=== PATIENT | male | born 1995 | race Caucasian/White ===

== ENCOUNTER 2023-01-22 21:33 | Emergency (ER) | payer MEDICAID, SELFPAY ==
[2023-01-22 21:55] VITALS: BP 151/118; PULSE 95; RESP 20; TEMP 36.5; O2SAT 97; BMI 23.0
[2023-01-22] MEDS: MORPHINE 4 MG/ML INJ IVP (22:50)
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
--- NOTE | 2023-01-22 23:23 | CRLHL7_ITS ---
For Patients: As a result of the Cures Act, medical imaging exams and procedure reports are released immediately into your electronic medical record. You may view this report before your referring provider. If you have questions, please contact your health care provider. INDICATION: Injury and pain. TECHNIQUE: Right knee 2 views. COMPARISON: None. FINDINGS: No acute fractures or malalignment. No joint effusion. Joint spaces are maintained. Soft tissues are unremarkable. IMPRESSION: No acute osseous abnormalities. Dictated by Justin Lancaster MD @ 01/23/2023 1:01:34 AM (Electronically Signed)
[2023-01-23] MEDS: BACITRACIN OINTMENT BULK TUBE 1 APPLIC TOPICAL (01:17)
--- NOTE | 2023-01-23 01:33 | ED.NURSE ---
R hand dressed with bacitracin, telfa and gauze. Patient tolerated well. Educated on wound care, monitoring and follow up.
[2023-01-23 01:34] VITALS: BP 143/98; PULSE 82; RESP 18; O2SAT 100
== END 2023-01-23 01:35 | disposition home or self-care (01) ==
PROVIDERS: Emergency Provider Family Medicine
DX: S80.01XA Contusion of right knee, initial encounter (principal); W17.89XA Other fall from one level to another, initial encounter; T23.251A Burn of second degree of right palm, initial encounter
CPT/HCPCS: 73560; 96374; 99284; A9270; J2270

== ENCOUNTER 2023-07-27 12:34 | Emergency (ER) | payer MEDICAID, SELFPAY ==
[2023-07-27 12:44] VITALS: BP 148/101; PULSE 82; RESP 18; TEMP 36.9; O2SAT 94; BMI 23.9
--- NOTE | 2023-07-27 12:53 | CRLHL7_ITS ---
For Patients: As a result of the Cures Act, medical imaging exams and procedure reports are released immediately into your electronic medical record. You may view this report before your referring provider. If you have questions, please contact your health care provider. Indication: Injury and pain. Technique: Left ankle 3 views. Comparison: None. Impression: Moderate soft tissue swelling adjacent to the lateral malleolus. No evidence of fracture or traumatic malalignment. Dictated by Eddie Levin MD @ 07/27/2023 2:12:35 PM (Electronically Signed)
--- NOTE | 2023-07-27 12:54 | ED_ITS ---
HPI - General Adult General Chief complaint: Extremity Pain/Injury, Lower Stated complaint: Rolled L ankle Time Seen by Provider: 07/27/23 12:36 History of Present Illness HPI narrative: Patient is a 28-year-old male who was playing basketball at the [employer] where he is employed, and rolled his left ankle. He has tenderness over the lateral anterior talofibular ligament some mild soft tissue swelling over his lateral malleolus. He was unable to bear weight and was asked to come to the ER. 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 He is very physically fit, no other specific problems or injuries. No proximal fibular pain. No open wounds. Related Data Home Medications Medication Instructions Recorded Confirmed chlorthalidone 25 mg tablet 12.5 mg PO QAM 01/22/23 01/22/23 lamotrigine 200 mg tablet 400 mg PO QPM 01/22/23 01/22/23 Allergies Allergy/AdvReac Type Severity Reaction Status Date / Time amoxicillin Allergy Verified 07/27/23 12:44 Review of Systems Status of ROS: Reports: 6 or more systems reviewed and unremarkable except as noted in History and below PFSH PFSH Social History Smoking Status: Never smoker Do you use any of these nicotine containing products: None Second hand tobacco smoke exposure: No How often do you have a drink containing alcohol: 2-4 times a month How many standard drinks containing alcohol do you have on a typical day: 3 or 4 How often do you have six or more drinks on one occasion: Monthly AUDIT-C Alcohol total score: 5 Non-prescribed substance use: denies use service: No Exam Narrative: Exam Narrative: Objective: Vital signs show slightly elevated blood pressure Left ankle shows tenderness over his anterior talofibular ligament ankle appears intact, no open wounds, plantar flexion with calf compression. No rents in the Achilles, no lateral 5th metatarsal tenderness. No medial deltoid ligament tenderness Const: Vital Signs, click to edit/add: Vital Signs - 24 hr 07/27/23 12:44 07/27/23 13:37 Temperature 98.4 F 98.4 F Pulse Rate [Pulse Oximeter] 82 82 Respiratory Rate 18 18 Blood Pressure [Le ft Upper Arm] 148/101 H 148/101 H Pulse Oximetry 94 Oxygen Delivery Me thod Room Air Course Vital Signs Vital signs: Initial Vital Signs Temperature 98.4 F 07/27/23 12:44 Temperature Source Temporal Artery Scan 07/27/23 12:44 Pulse Rate 82 07/27/23 12:44 Pulse Rhythm Irregular 07/27/23 12:44 Respiratory Rate 18 07/27/23 12:44 Blood Pressure 148/101 H 07/27/23 12:44 Blood Pressure Mean 116 H 07/27/23 12:44 Blood Pressure Position Supine 07/27/23 12:44 Pulse Oximetry 94 07/27/23 12:44 Oxygen Delivery Method Room Air 07/27/23 12:44 Vital Signs Temperature 98.4 F 07/27/23 12:44 Pulse Rate 82 07/27/23 12:44 Respiratory Rate 18 07/27/23 12:44 Blood Pressure 148/101 H 07/27/23 12:44 Pulse Oximetry 94 07/27/23 12:44 Oxygen Delivery Method Room Air 07/27/23 12:44 Temperature 98.4 F 07/27/23 13:37 Pulse Rate 82 07/27/23 13:37 Respiratory Rate 18 07/27/23 13:37 Blood Pressure 148/101 H 07/27/23 13:37 Pulse Oximetry 94 07/27/23 12:44 Oxygen Delivery Method Room Air 07/27/23 12:44 Medical Decision Making MDM Narrative Medical decision making narrative: 28-year-old male with a left ankle inversion sprain. I think an x-ray be appropriate to rule out fracture. He has had trouble bearing weight due to discomfort. If his x-ray is negative then a gel splint, icing, ibuprofen, crutc hes would be recommended and follow-up with primary care in 2-3 days. Please see addendum. Addendum 1:24 p.m.: The patient x-ray by my read looks unremarkable for fracture. The patient will be given a gel cast, crutches nonweightbearing for a couple of days follow-up with primary care in 2-3 days. Ibuprofen and ice recommended he was comfortable plan will follow up as directed. Discharge Plan Discharge Clinical Impression: Ankle sprain and strain Patient Disposition: Home, Self-Care Condition: Stable Additional Instructions: Crutches, ice, elevation, ibuprofen on a regular basis, follow-up with primary care in 2-3 days. Return to ED sooner problems or concerns. Activity Level: Light activity Discharge Diet: Regular Prescriptions: No Action lamotrigine 200 mg tablet 400 mg PO QPM chlorthalidone 25 mg tablet 12.5 mg PO QAM Follow Up/Referrals: Provider,Not a Local [Referring] - Stand Alone Forms: [facility] Info Instructions
[2023-07-27] MEDS: IBUPROFEN 400 MG TABLET 800 MG PO (13:12)
[2023-07-27 13:37] VITALS: BP 148/101; PULSE 82; RESP 18; TEMP 36.9
== END 2023-07-27 13:37 | disposition home or self-care (01) ==
LOC: ED 13:31
PROVIDERS: Emergency Provider Family Medicine; PCP Student in an Organized Health Care Education/Training Program
DX: S93.402A Sprain of unspecified ligament of left ankle, initial encounter (principal)
CPT/HCPCS: 73610; 99283; 99284; A9270

== ENCOUNTER 2024-01-25 11:10 | Outpatient (CLI) | payer MEDICAID, SELFPAY ==
--- NOTE | 2024-01-25 11:15 | FL_ITS ---
Patient: MOISE WICK Facility:?[facility] Patient ID:?[id number] Site Patient ID:?[id number]. Site :?1995 Study:?XRay-Abdomen Barium swollow modified to ellie-01/25/2024 12:28:51 PM Ordering Physician:?JAREN Final Report: INDICATION: Oropharyngeal dysphagia TECHNIQUE: Modified barium swallow. Fluoroscopic time 45 seconds. COMPARISON: None FINDINGS/IMPRESSION: Anatomical structures are normal. Swallowing mechanism appears within normal limits. No episodes of penetration or aspiration. Early disc space narrowing and spurring noted at C5-6. No hypertrophy of the cricopharyngeus muscle. Dictated by Walt Sanchez MD @ 01/25/2024 12:54:03 PM Signed by:?Walt Sanchez MD @01/25/2024 12:54:03 PM (Electronic Signature)
== END 2024-01-25 11:11 | disposition home or self-care (01) ==
LOC: RAD 11:10
PROVIDERS: PCP Student in an Organized Health Care Education/Training Program; Visit Provider Student in an Organized Health Care Education/Training Program
DX: R13.12 Dysphagia, oropharyngeal phase (principal)
CPT/HCPCS: 74230; 92611

== ENCOUNTER 2025-04-28 01:51 | Emergency (ER) | payer MEDICAID, SELFPAY ==
[2025-04-28] MEDS: OLANZapine 5 MG/ML inj 10 MG IM (02:05)
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
--- OUTSIDE RECORDS SUMMARY | 2025-04-28 02:07 | XMS_ITS | Clinical Summary ---
Author Organization [facility] Address [address] [place] [address] Care Team Providers Care School Cook Name Role Phone No Primary/Referring, Phy Primary Care Provider Unavailable Source Comments You are receiving this document as you are listed as the primary care provider,follow-up provider, or the patient has been referred to you for consultation.This is in compliance with the Medicare andMedicaid EHR Incentive Program,which states Providers who transition their patient to another setting of careor provider of care or refers their patient to another provider of care shouldprovide summary care record for each transition of care or referral. [facility] Allergies Active Allergy Reactions Criticality Noted Date Comments Amoxicillin 06/17/2003 PN: LW Reaction: Rash, Generalized Medications fluticasone-brooklynn meterol (AKA ADVAIR DISKUS) 500-50 MCG/DOSE diskus inhaler Inhale 1 Dose 2 times daily. LW Addl Instr:Gargle after use. Indicated for: Asthma 5 Active ALBUTEROL IN Inhale 1-2 puffs every 4 hours as needed. 5 Active Immunizations Immunization Administration Dates Next Due DTP 06/24/1997, 4,1993,1992,1993 HepB Adult (Engerix-B, 20+ y rs, 3 dose series) 01/28/1995,1993,1993 Hib (ActHIB) 07/22/1994, 3,1993,1992 MMR 06/05/1998,04/15/1994 OPV, Trivalent (Orimune or tOPV) 997,1993,1993,1992 Social History Tobacco Use Types Packs/Day Years Used Date Smoking Tobacco: Never Sex and Gender Information Value Date Recorded Sex Assigned at Not on file Legal Sex Male 1:53 PM CDT Gender Identity Not on file Sexual Orientation Not on file Last Filed Vital Signs Vital Sign Reading Time Taken Comments Blood Pressure 144/103 01/28/2022 3:23 PM CDT Pulse 55 01/28/2022 2:11 PM CDT Temperature 36.3 C (97.3 F) 01/28/2022 12:00 PM CDT Respiratory Rate 22 01/28/2022 2:11 PM CDT Oxygen Saturation 98% 01/28/2022 2:10 PM CDT Inhaled Oxygen Concentration - - Weight 54.4 kg (120 lb) 03/04/2022 9:37 AM CDT Height 160 cm (5' 3) 02/04/2022 11:30 AM CDT Body Mass Index 21.26 02/04/2022 11:30 AM CDT Plan of Treatment Health Maintenance Due Date Last Done Comments Hep C Screening (Preventive Services) 1993 HIV Screening (Preventive Services) 2009 Adult Preventive Visit 2011 HepA Vaccine (2 of 2 - 2-dose series) 02/22/2011 08/25/2010 COVID-19 Vaccine ( season) 2024 Influenza Vaccine (#1) 2025 7, 08/25/2010, 12/02/2009, Additional history exists DTaP/Tdap/Td Vaccine (10 - Tdap) 06/16/2027 06/16/2017, 09/30/2008, 03/29/2005, Additional history exists Zoster/Shingles Vaccine (1 of 2) 2043 Hib Vaccine Completed 07/22/1994, 07/10, 1993, Additional history exists HepB Vaccine Completed 01/28/1995, 02/07, 1993 IPV (Polio) Vaccine Completed 06/24/1997, 1993, 1993, Additional history exists MCV4 Vaccine Completed 08/25/2010, 03/29/2005 HPV Vaccine Aged Out No longer eligi ble based on patient's age to complete this topic Meningococcal B Vaccine Aged Out No l onger eligible based on patient's age to complete this topic Pneumococcal Vaccine Aged Out No long er eligible based on patient's age to complete this topic Insurance [facility] Care Teams School Cook Relationship Specialty Start Date End Date No Primary/Referring, Phy PCP - General 01/28/22
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
[2025-04-28 02:30] VITALS: BP 121/73; PULSE 76; RESP 20; TEMP 36.7; O2SAT 96; BMI 23.3
[2025-04-28 02:33] LABS: Hematocrit 45.4 % (37.0-53.0); Hemoglobin* 15.5 gm/dL (13.5-17.5); Immature Granulocytes Abs Auto 0.04 K/uL (0.00-0.30); Immature Granulocytes Pct Auto 0.4 %; Lymphocytes Absolute Auto 3.05 K/uL (0.90-2.90); Mean Corpuscular HGB Conc 34 gm/dL (32-36); Mean Corpuscular Hemoglobin 30 pg (26-34); Mean Corpuscular Volume 88 fL (80-100); RDW Coefficient of Variation % 12.4 % (11.5-15.5); Red Blood Count 5.18 m/uL (4.30-5.90); White Blood Count* 10.93 K/uL (4.50-11.00)
[2025-04-28 02:37] LABS: Cannabinoid Screen Urine POSITIVE (Negative); Methamphetamines Screen Urine Negative (Negative); Tricyclic Antidepressant Urine Negative (Negative)
[2025-04-28 02:44] VITALS: PULSE 68; RESP 16; O2SAT 94
[2025-04-28 03:03] LABS: Slide Review Reflex No
[2025-04-28 03:42] LABS: Albumin* 5.0 g/dL (3.3-5.0); Chloride* 111 mmol/L (96-114); Potassium* 4.0 mmol/L (3.6-5.1); Sodium* 146 mmol/L (135-149)
[2025-04-28 03:44] LABS: Alanine Aminotransferase* 30 U/L (4-50); Aspartate Amino Transferase* 39 U/L (12-35); Blood Urea Nitrogen* 12 mg/dL (5-24); Creatinine* 1.0 mg/dL (0.5-1.5); Est. Creatinine Clearance* 92.25; Estimated Glomerular Filt Rate 103 ml/min
[2025-04-28 03:45] LABS: Alkaline Phosphatase* 77 U/L (40-150); Anion Gap 16 mEq/L (7-15); Bilirubin Total* 0.4 mg/dL (0.1-1.5); Calcium* 9.4 mg/dL (8.4-10.6); Carbon Dioxide* 19 mmol/L (20-32); Glucose* 123 mg/dL (60-115); Total Protein* 7.5 g/dL (6.0-8.3)
[2025-04-28 03:46] LABS: Ethanol* 0.26 % (0.01-0.03)
[2025-04-28 03:56] LABS: Acetaminophen* < 10.0 ug/mL (10.0-30.0); Salicylate* < 1.0 mg/dL (1.0-10)
[2025-04-28 04:00] VITALS: PULSE 62; RESP 16; O2SAT 96
[2025-04-28 07:00] VITALS: PULSE 66; RESP 16; O2SAT 96
== END 2025-04-28 07:59 | disposition home or self-care (01) ==
PROVIDERS: Emergency Provider Internal Medicine; PCP Student in an Organized Health Care Education/Training Program
DX: F10.129 Alcohol abuse with intoxication, unspecified (principal)
CPT/HCPCS: 36415; 80053; 80143; 80179; 80306; 82077; 85025; 99283